=== PATIENT | female | born 1950 | race African-American/Black ===

== ENCOUNTER 2019-02-12 09:50 | Emergency (ER) | payer BC, MEDICARE ==
[~2019-02-12] VITALS: Ht 165.1 cm; Wt 89.0 kg
[~2019-02-12 09:50] MED LIST: ATEN100T PO; PRAV20TA57 PO; TRAM50TA3 PO; TRIA1CAP6 PO
[2019-02-12] MEDS ORDERED: TETRACAINE 0.5% OPHTH DROPS 4ML BOTHEYE ONE (10:30)
[2019-02-12] MEDS ORDERED: FLUORESCEIN SODIUM 1MG/STRIP BOTHEYE ONE (10:30)
[2019-02-12 10:45] VITALS: BP 172/78
== END 2019-02-12 10:48 | disposition home or self-care (01) ==
LOC: ER 09:50
DX: H10.13 Acute atopic conjunctivitis, bilateral (principal); E78.00 Pure hypercholesterolemia, unspecified; I10 Essential (primary) hypertension
CPT/HCPCS: 99283

== ENCOUNTER 2021-10-31 18:26 | Inpatient (IN) | payer MEDICARE, OTHER ==
[~2021-10-31] VITALS: Ht 165.1 cm; Wt 86.2 kg
[2021-10-31 23:10] LABS: BASOPHILS % 0.7 % (0.0-2.0); EOSINOPHILS % 0.8 % (0.0-5.0); HEMATOCRIT. 40.6 % (36.0-48.0); LYMPHOCYTES % 26.2 % (20.0-50.0); MEAN CORPUSCULAR HEMOGLOBIN 28.4 pg (28.0-32.0); MEAN CORPUSCULAR VOLUME 82.2 fL (81.0-99.0); MEAN PLATELET VOLUME 9.2 fl (7.4-10.4); MONOCYTES % 9.4 % (2.0-8.0); NEUTROPHILS % 62.9 % (40.0-76.0); PLATELET 197 x1000/uL (130-400); RED BLOOD CELL COUNT 4.94 mill/uL (4.2-5.4)
[2021-10-31 23:18] LABS: CHLORIDE 105 mEq/L (98-107)
[2021-10-31] MEDS ORDERED: POTASSIUM CHLORIDE 20MEQ/PACKET PO NR (23:45)
[2021-11-01] MEDS ORDERED: IOHEXOL-350 100 ML BOTTLE ONE (02:53)
[2021-11-01] MEDS ORDERED: ASPIRIN 325MG EC TABLET PO ONE (03:30)
[2021-11-01 10:00] VITALS: BP 137/67
[2021-11-01 10:21] VITALS: BP 137/67
[2021-11-01 12:00] VITALS: BP 114/72
[2021-11-01 16:00] VITALS: BP 145/78
[2021-11-01] MEDS ORDERED: DULO60CA64 MT (17:34)
[2021-11-01] MEDS ORDERED: NAPR-681 PO (17:39)
[2021-11-01] MEDS ORDERED: BENA40TA91 MT (17:39)
[2021-11-01] MEDS ORDERED: OMEP-265 PO (17:39)
[2021-11-01] MEDS ORDERED: AMLO10TA80 MT (17:39)
[2021-11-01] MEDS ORDERED: PREG75CA MT (17:39)
[2021-11-01] MEDS ORDERED: TRIA1TAB94 MT (17:39)
[2021-11-01] MEDS: ACETAMINOPHEN 325MG TABLET PO PRN (18:09)
[2021-11-01] MEDS ORDERED: ONDANSETRON HCL 4MG/2ML INJ IV PRN (18:15)
[2021-11-01 20:00] VITALS: BP 122/61
[2021-11-01 21:24] LABS: CLARITY URINE CLOUDY (CLEAR); COLOR URINE YELLOW (YELLOW); KETONES URINE NEGATIVE (NEGATIVE); LEUKOCYTE ESTERASE URINE NEGATIVE (NEGATIVE); NITRITE URINE NEGATIVE (NEGATIVE); OCCULT BLOOD URINE NEGATIVE (NEGATIVE); PROTEIN URINE NEGATIVE (NEGATIVE); SPECIFIC GRAVITY URINE 1.017 (1.005-1.030)
[2021-11-02] VITALS: BP 155/73
[2021-11-02 04:00] VITALS: BP 130/74
[2021-11-02 08:00] VITALS: BP 156/77
[2021-11-02] MEDS: ACETAMINOPHEN 325MG TABLET PO PRN (10:35)
[2021-11-02 12:00] VITALS: BP 142/72
[2021-11-02] MEDS: ATENOLOL 50 MG TABLET PO SCH (13:35)
[2021-11-02] MEDS: DULOXETINE HCL 60MG DR CAPSULE PO SCH (13:35)
[2021-11-02] MEDS: AMLODIPINE 10MG TABLET PO SCH (13:36)
[2021-11-02] MEDS: LISINOPRIL 20MG TABLET PO SCH (13:36)
[2021-11-02] MEDS: OMEPRAZOLE 20MG CAPSULE EXTENDED RELEASE PO SCH (13:36)
[2021-11-02] MEDS ORDERED: ENOXAPARIN 40MG/0.4ML SYR SUBCUT SCH (14:00)
[2021-11-02 16:00] VITALS: BP 147/75
[2021-11-02] MEDS: TRIAMTERENE/HCTZ 37.5/25MG TABLET PO SCH (16:19)
[2021-11-02] MEDS: ASPIRIN 81MG EC TABLET PO SCH (16:19)
[2021-11-02 16:41] LABS: CHLORIDE 104 mEq/L (98-107)
[2021-11-02] MEDS: PREGABALIN 75MG CAPSULE PO SCH (18:49)
[2021-11-02 20:00] VITALS: BP 124/71
[2021-11-02] MEDS ORDERED: ATORVASTATIN CALCIUM 10MG TABLET PO SCH (21:00)
[2021-11-02 22:40] LABS: *AMPHETAMINES SCREEN URINE NEGATIVE (NEGATIVE); *BARBITURATES SCREEN URINE NEGATIVE (NEGATIVE); *BENZODIAZEPINES SCREEN URINE NEGATIVE (NEGATIVE); *COCAINE SCREEN URINE NEGATIVE (NEGATIVE); CANNABINOID URINE SCREEN PRESUMTIVE POSITIVE (NEGATIVE); METHADONE URINE SCREEN NEGATIVE (NEGATIVE); OPIATES URINE SCREEN NEGATIVE (NEGATIVE); PHENCYCLIDINE URINE SCREEN NEGATIVE (NEGATIVE)
[2021-11-02] MEDS ORDERED: ENOXAPARIN 40MG/0.4ML SYR SUBCUT NR (23:00)
[2021-11-03] VITALS: BP 139/75
[2021-11-03 04:00] VITALS: BP 140/70
[2021-11-03] MEDS: OMEPRAZOLE 20MG CAPSULE EXTENDED RELEASE PO SCH (06:49)
[2021-11-03 07:14] LABS: BASOPHILS % 0.7 % (0.0-2.0); EOSINOPHILS % 2.4 % (0.0-5.0); HEMATOCRIT. 42.8 % (36.0-48.0); HEMOGLOBIN. 14.8 g/dL (12.0-16.0); LYMPHOCYTES % 39.7 % (20.0-50.0); MEAN CORPUSCULAR HEMOGLOBIN 28.1 pg (28.0-32.0); MEAN CORPUSCULAR VOLUME 81.7 fL (81.0-99.0); MEAN PLATELET VOLUME 9.3 fl (7.4-10.4); MONOCYTES % 9.4 % (2.0-8.0); NEUTROPHILS % 47.8 % (40.0-76.0); PLATELET 205 x1000/uL (130-400); RED BLOOD CELL COUNT 5.24 mill/uL (4.2-5.4); RED CELL DISTRIBUTION WIDTH 14.8 % (11.6-14.6)
[2021-11-03 07:17] LABS: PARTIAL THROMBOPLASTIN TIME 29.6 sec (23.4-31.0); PROTHROMBIN TIME 10.3 sec (9.6-11.0)
[2021-11-03 07:33] LABS: CHLORIDE 99 mEq/L (98-107)
[2021-11-03 08:00] VITALS: BP 139/76
[2021-11-03] MEDS: ATENOLOL 50 MG TABLET PO SCH (08:26)
[2021-11-03] MEDS: ASPIRIN 81MG EC TABLET PO SCH (08:26)
[2021-11-03] MEDS: AMLODIPINE 10MG TABLET PO SCH (08:26)
[2021-11-03] MEDS: DULOXETINE HCL 60MG DR CAPSULE PO SCH (08:26)
[2021-11-03] MEDS: LISINOPRIL 20MG TABLET PO SCH (08:26)
[2021-11-03] MEDS: TRIAMTERENE/HCTZ 37.5/25MG TABLET PO SCH (08:26)
[2021-11-03] MEDS: PREGABALIN 75MG CAPSULE PO SCH ×2 (08:26→16:52)
[2021-11-03] MEDS ORDERED: MEDICATION NOT ON FORMULARY EA (Pravastatin Sodium 1 TAB) PO SCH (09:00)
[2021-11-03] MEDS ORDERED: REGADENOSON 0.4 MG/5 ML IV NR (09:00)
[2021-11-03 12:00] VITALS: BP 124/72
[2021-11-03 16:00] VITALS: BP 131/89
[2021-11-03 16:32] VITALS: BP 132/74
== END 2021-11-03 17:30 | disposition home or self-care (01) | DRG 74 ==
LOC: ER 18:26 → 7WST 11-01 01:22 → ENRESERV 11-01 07:36
PROVIDERS: ADMIT Internal Medicine; ATTEND Internal Medicine
DX: G90.8 Other disorders of autonomic nervous system (principal); E87.6 Hypokalemia; I10 Essential (primary) hypertension; K21.9 Gastro-esophageal reflux disease without esophagitis; E78.00 Pure hypercholesterolemia, unspecified; Z20.822 Contact with and (suspected) exposure to COVID-19; F32.A Depression, unspecified; F41.9 Anxiety disorder, unspecified; R79.89 Other specified abnormal findings of blood chemistry; Z86.718 Personal history of other venous thrombosis and embolism; Z86.711 Personal history of pulmonary embolism; Z87.891 Personal history of nicotine dependence; Z82.49 Family history of ischemic heart disease and other diseases of the circulatory system
CPT/HCPCS: 36415; 71045; 71275; 78452; 80048; 80053; 80305; 81003; 83735; 83880; 84443; 84484; 85025; 85379; 87426; 93005; 93017; 93306; 93880; 93970; 99291; A9500; C9803; J1650; J2785; Q9967